=== PATIENT | male | born 1985 | race Two or more races ===

== ENCOUNTER 2020-10-23 13:00 | Emergency (ER) | payer MEDICAID ==
[~2020-10-23] VITALS: Ht 180.3 cm; Wt 76.2 kg
[2020-10-23] MEDS ORDERED: METOCLOPRAMIDE HCL 10 MG/2 ML VIAL ONE (13:34)
[2020-10-23] MEDS ORDERED: diphenhydrAMINE HCL 50 MG/ML VIAL ONE (13:34)
[2020-10-23] MEDS: METOCLOPRAMIDE HCL 10 MG/2 ML VIAL IV ONE ×2 (13:51→13:52)
[2020-10-23] MEDS: IV NS 0.9% 1,000 ML BAG IV ONE ×2 (13:51→14:11)
[2020-10-23] MEDS: diphenhydrAMINE HCL 50 MG/ML VIAL IV ONE (13:55)
--- NOTE | 2020-10-23 13:56 | NUR ---
HEADACHE, NAUSEA AND VOMITING SINCE LAST NIGHT. TOOK TYLENOL NO RELIEF. PT AAOX4, VSS. RR EVEN & UNLABORED. DENIES CP, SOB, DIZZINESS AT THIS TIME. PT SEEN & EVAL'D BY DR. BA. MEDICATED ORDERED, WILL CONT TO MONITOR.
[2020-10-23 13:59] LABS: BASOPHILS % (AUTO) 0.7 % (0.0-2.0); EOSINOPHILS % (AUTO) 0.9 % (0.0-6.0); HEMATOCRIT 42 % (39-51); HEMOGLOBIN 14.5 g/dL (13.5-17.5); LYMPHOCYTES # (AUTO) 0.7 /CMM (0.8-4.8); LYMPHOCYTES % (AUTO) 11.3 % (20.0-44.0); MEAN CORPUSCULAR HGB CONC 34 g/dl (31.0-36.0); MEAN CORPUSCULAR VOLUME 92 fL (80-96); MONOCYTES # (AUTO) 0.2 /CMM (0.1-1.30); MONOCYTES % (AUTO) 2.6 % (2.0-12.0); NEUTROPHILS # (AUTO) 5.6 /CMM (1.8-8.9); NEUTROPHILS % (AUTO) 84.5 % (43.0-81.0); PLATELET COUNT (AUTO) 170 /CMM (150-450); RED BLOOD CELL COUNT(AUTO) 4.61 MIL/uL (4.5-6.0); WHITE BLOOD COUNT (AUTO) 6.6 K/uL (4.3-11.0)
[2020-10-23 14:07] LABS: CALCIUM, SERUM 8.4 mg/dL (8.5-10.1); CREATININE 0.9 mg/dL (0.6-1.3); POTASSIUM 4.2 mmol/L (3.5-5.1)
[2020-10-23 14:13] LABS: ALBUMIN 3.7 g/dL (3.4-5.0); BILIRUBIN,TOTAL 0.4 mg/dL (0.2-1.0)
[2020-10-23] MEDS ORDERED: NAPR-1164 PO (15:57)
[2020-10-23 16:34] VITALS: BP 123/78
--- NOTE | 2020-10-23 16:34 | NUR ---
Patient discharged to home in stable condition. Written and verbal after care instructions given. Patient verbalizes understanding of instruction. IV removed. Catheter intact and site benign. Pressure and 4x4 applied to site. No bleeding noted.
== END 2020-10-23 16:35 | disposition home or self-care (01) ==
LOC: ER 13:04
DX: G43.909 Migraine, unspecified, not intractable, without status migrainosus (principal); R11.2 Nausea with vomiting, unspecified
CPT/HCPCS: 36415; 70450; 80048; 80076; 85025; 85610; 85730; 96361; 96374; 96375; 99284; J1200; J2765; J7030